=== PATIENT | female | born 1945 | race African-American/Black ===

== ENCOUNTER 2017-07-12 15:47 | Emergency (ER) | payer OTHER ==
--- NOTE | 2017-07-12 15:50 | PDOC ---
Attending Attestation - HPI HPI: 07/12/17 16:56 The patient is a 71 year old female, with a significant past medical history of GERD, bipolar disorder, schizophrenia, MDD, and hypertension, who presents to the emergency department from [facility] s/p unwitnessed mechanical fall earlier today. Per complex case manager at [facility], patient fell out of her wheelchair today. Per staff, patient was sitting in a chair in the cafeteria when she began to have tremors, became diaphoretic, and then fell out of her chair. Unknown if patient sustained any head trauma or LOC. Staff state patient has had similar episodes of tremors and diaphoresis 3-4 times in the past month , and usually resolve on their own. Patient has no other complaints at this time. - Medical Decision Making 07/12/17 16:56 Documentation prepared by Mary Jane Terrazas, acting as medical scientific liaison for Danica Yang MD. <Mary Jane Terrazas - Last Filed: 07/12/17 16:56> - Resident Resident Name: Bri Lynn - ED Attending Attestation I have performed the following: I have examined & evaluated the patient, The case was reviewed & discussed with the resident, I agree w/resident's findings & plan, Exceptions are as noted - Physicial Exam PE: GENERAL: Awake, alert, and fully oriented, in no acute distress, moving all 4 extremities HEAD: No signs of trauma LUNGS: Breath sounds equal, clear to auscultation bilaterally. No wheezes, and no crackles HEART: Regular rate and rhythm, normal S1 and S2, no murmurs, rubs or gallops ABDOMEN: Soft, nontender, pelvis stable EXTREMITIES: Normal range of motion NEUROLOGICAL: Cranial nerves II through XII intact. 5/5 strength and sensation in all extremities, Normal speech, normal gait, normal cerebellar function SKIN: Warm, Dry, normal turgor, no rashes or lesions noted. - Medical Decision Making Ms Anguiano is a 71 yo F with a history of schizophrenia Pt sent to the ER due to shaking noted in the wheel chair ? fall from the wheel chair pt denies shaking Pt denies falls Pt denies pain or injury pending CT pending labs Pt signed out to overnight attending <Danica Yang - Last Filed: 07/15/17 18:43>
--- NOTE | 2017-07-12 15:51 | PDOC ---
History of Present Illness - General Stated Complaint: TREMBLING - History of Present Illness Initial Comments: 07/12/17 16:00 Patient is a 71 year old female with a reported PMH of GERD, Bipolar Schizophrenia, MDD, HTN who presents to our ED from [facility] after falling out of a chair earlier today. As per staff at patient's [facility], patient was sitting in a chair in the cafeteria when she was noted to have tremors and diaphoresis and subsequently fell out of her care. Staff is unable to provide details of fall including possible head trauma/LOC and patient denies any fall or medical complaints in general. Staff note that patient has a month h/o similar episodes of tremors and diaphoresis with +/- falls for 1 month that are usually self-resolving. Patient's medication list reviewed with [facility] staff, uncertain why patient on blood thinners. NKDA Surgical: L hip Social: denies nicotine, denies alcohol, denies recreational drugs History obtained from patient and Cynthia Public Bath Attendant @ [facility] ext 155 Past History - Past Medical History Allergies/Adverse Reactions: Allergies Allergy/AdvReac Type Severity Reaction Status Date / Time No Known Allergies Allergy Verified 03/05/16 10:27 Home Medications: Ambulatory Orders Albuterol Sulfate Inhaler - [Ventolin Hfa Inhaler -] 2 inh PO Q6H 07/12/17 Amlodipine Besylate [Norvasc -] 5 mg PO DAILY 07/12/17 Apixaban [Eliquis] 5 mg PO BID 07/12/17 Docusate Sodium [Colace] 300 mg PO HS 07/12/17 Donepezil HCl 10 mg PO HS 07/12/17 Olanzapine [Zyprexa] 20 mg PO HS 07/12/17 Ranitidine HCl [Zantac] 150 mg PO BID 07/12/17 Sennosides [Senokot] 2 tab PO HS 07/12/17 GI Disorders: Yes (Hiatal hernia) HTN: Yes Psychiatric Problems: Yes (Schizophrenia paranoid type) - Suicide/Smoking/Psychosocial Hx Smoking Status: No Smoking History: Never smoked Number of Cigarettes Smoked Daily: 0 Hx Alcohol Use: No Drug/Substance Use Hx: No Substance Use Type: None Review of Systems - Review of Systems Able to Perform ROS?: No *Physical Exam - Physical Exam Comments: 07/12/17 16:12 GENERAL: Awake, alert, and fully oriented, in no acute distress, moving all 4 extremities HEAD: No signs of trauma EYES: PERRLA, EOMI, sclera anicteric, conjunctiva clear ENT: Auricles normal inspection, hearing grossly normal, nares patent, oropharynx clear without exudates. Moist mucosa NECK: Nontender, no stepoffs, Normal ROM, supple, no lymphadenopathy, JVD, or masses LUNGS: Breath sounds equal, clear to auscultation bilaterally. No wheezes, and no crackles HEART: Regular rate and rhythm, normal S1 and S2, no murmurs, rubs or gallops ABDOMEN: Soft, nontender, normoactive bowel sounds. No guarding, no rebound. No masses EXTREMITIES: Normal range of motion, no edema. No clubbing or cyanosis. No cords, erythema, or tenderness NEUROLOGICAL: Cranial nerves II through XII intact. 5/5 strength and sensation in all extremities, Normal speech, normal gait, normal cerebellar function SKIN: Warm, Dry, normal turgor, no rashes or lesions noted. ED Treatment Course - LABORATORY CBC & Chemistry Diagram: 07/12/17 16:35 07/12/17 16:35 Medical Decision Making - Medical Decision Making 07/12/17 16:08 71 year old female presents following episode of diaphoresis, tremors and fall with repeated h/o diaphoresis/tremors. DDx includes hypoglycemia, seizures, TIA. Will CT head/C-spine, basic labs, CXR, EKG. 07/12/17 16:12 FS 131; ECG shows A flutter with LAD HR 79 - no KENDALL/STD - no ischemic ECG. 07/12/17 19:[address] shows no acute bleed/ischemia. C-spine shows no fracture. CBC, CMP unremarkable. Troponin (-) x1. Patient continues to deny active medical complaints. At this time, patient stable for discharge. [facility] contacted, no medical personnel available overnight. Doctor Merrick Enriquez listed on patient' s paperwork as facility physician however no answer at provided phone number ). Will discharge patient to [facility] - follow up phone call tomorrow ( 07/12) to case finishing machine adjuster. *DC/Admit/Observation/Transfer Diagnosis at time of Disposition: Fall - Discharge Dispostion Disposition: INTERMEDIATE FACILITY Condition at time of disposition: Good Admit: No - Referrals Referrals: Oksana Barraza MD [Primary Care Provider] - - Patient Instructions Printed Discharge Instructions: How to Prevent Falls Additional Instructions: You were evaluated today following a fall. A cat scan of your head showed no concerning findings. We recommend you follow up with your facility's primary care provider for a general medical evaluation. Return to the Emergency Department for any new/worsening/concerning symptoms. - Post Discharge Activity
[2017-07-12 16:00] VITALS: BMI 27.3
[2017-07-12 16:52] LABS: BASO % 0.5 % (0-2.0); EOS % 0.3 % (0-4.5); HEMATOCRIT 41.3 % (32.4-45.2); HEMOGLOBIN 13.8 GM/dL (10.7-15.3); LYMPH % 11.9 % (8-40); MCHC 33.3 g/dl (32.0-36.0); MEAN CELL VOLUME 84.1 fl (80-96); MONO % 5.5 % (3.8-10.2); NEUT % 81.8 % (42.8-82.8); PLATELET COUNT 329 K/MM3 (134-434); RBC 4.91 M/mm3 (3.60-5.2); RDW 15.1 % (11.6-15.6); WHITE BLOOD COUNT 6.3 K/mm3 (4.0-10.0)
[2017-07-12 17:24] LABS: ALBUMIN 3.7 g/dl (3.4-5.0); ANION GAP 8 (8-16); BILIRUBIN,TOTAL 0.2 mg/dL (0.2-1.0); BLOOD UREA NITROGEN 13 mg/dL (7-18); CALCIUM 9.7 mg/dL (8.5-10.1); CHLORIDE 107 mmol/L (98-107); CO2 27 mmol/L (21-32); GLUCOSE,RANDOM 104 mg/dL (74-106); POTASSIUM 4.1 mmol/L (3.5-5.1); SGOT/AST 17 U/L (15-37); SODIUM 142 mmol/L (136-145); TOT PROT 7.7 g/dl (6.4-8.2)
[2017-07-12 17:27] LABS: ALK PHOS 106 U/L (45-117); SGPT/ALT 19 U/L (12-78)
[2017-07-12 19:11] VITALS: PULSE 82
[2017-07-12 21:03] VITALS: BP 146/89; TEMP 98.2
--- NOTE | 2017-07-13 11:07 | EKG ---
Test Reason : Blood Pressure : / mmHG Vent. Rate : 079 BPM Atrial Rate : 300 BPM P-R Int : 000 ms QRS Dur : 094 ms QT Int : 388 ms P-R-T Axes : 047 -42 061 degrees QTc Int : 444 ms POOR DATA QUALITY, INTERPRETATION MAY BE ADVERSELY AFFECTED SINUS RHYTHM PREMATURE ATRIAL COMPLEXES LEFT AXIS DEVIATION MINIMAL VOLTAGE CRITERIA FOR LVH, MAY BE NORMAL VARIANT ABNORMAL ECG Confirmed by MAGO AGUIRRE, ALAINA ([id number]) on 07/13/2017 11:07:05 AM Referred By: Confirmed By:ALAINA MERCEDES MD
== END 2017-07-12 21:03 ==
LOC: JER 15:47
DX: Z04.3 Encounter for examination and observation following other accident (principal); W07.XXXA Fall from chair, initial encounter; Y93.89 Activity, other specified; Y92.129 Unspecified place in nursing home as the place of occurrence of the external cause; F20.9 Schizophrenia, unspecified; I10 Essential (primary) hypertension; K21.9 Gastro-esophageal reflux disease without esophagitis
CPT/HCPCS: 36415; 70450-TC; 72125-TC; 80053; 82550; 82553; 82962; 83735; 84484; 85025; 93005; 93010; 99283-25

== ENCOUNTER 2019-02-27 09:35 | Inpatient (IN) | payer OTHER ==
[2019-02-27 10:52] LABS: BASO % 1.6 % (0-2.0); EOS % 0.1 % (0-4.5); HEMATOCRIT 39.1 % (32.4-45.2); HEMOGLOBIN 12.5 GM/dL (10.7-15.3); LYMPH % 30.8 % (8-40); MCH 28.2 pg (25.7-33.7); MEAN CELL VOLUME 88.1 fl (80-96); MEAN PLT VOLUME 7.6 fl (7.5-11.1); MONO % 8.9 % (3.8-10.2); NEUT % 58.6 % (42.8-82.8); PLATELET COUNT 319 K/MM3 (134-434); RBC 4.43 M/mm3 (3.60-5.2); RDW 14.1 % (11.6-15.6); WHITE BLOOD COUNT 3.5 K/mm3 (4.0-10.0)
[2019-02-27 11:03] LABS: INR 1.11 (0.83-1.09); PROTHROMBIN TIME (PATIENT) 13.1 SEC (9.7-13.0)
[2019-02-27 11:05] LABS: ACTIVATED PTT 38.6 SECONDS (25.2-36.5)
[2019-02-27 11:18] LABS: ALBUMIN 3.4 g/dl (3.4-5.0); BILIRUBIN,TOTAL 0.3 mg/dL (0.2-1); CALCIUM 9.2 mg/dL (8.5-10.1); CREATININE 0.7 mg/dL (0.55-1.3); POTASSIUM 4.8 mmol/L (3.5-5.1); TOT PROT 6.8 g/dl (6.4-8.2)
[2019-02-27 11:21] LABS: LIPASE 158 U/L (73-393)
[2019-02-27 11:22] LABS: URINE APPEARANCE CLEAR; URINE BILIRUBIN NEGATIVE (NEGATIVE); URINE COLOR YELLOW; URINE GLUCOSE (UA) NEGATIVE (NEGATIVE); URINE KETONE NEGATIVE (NEGATIVE); URINE LEUK ESTERASE NEGATIVE (NEGATIVE); URINE NITRITE NEGATIVE (NEGATIVE); URINE PROTEIN NEGATIVE (NEGATIVE); URINE UROBILINOGEN 0.2 mg/dL (0.2-1.0)
--- NOTE | 2019-02-27 11:22 | PDOC ---
Documentation entered by Annmarie Barajas SCRIBE, acting as scribe for Matthieu Harris MD. Matthieu Harris MD: This documentation has been prepared by the Kalr tomlinson Joy, SCRIBE, under my direction and personally reviewed by me in its entirety. I confirm that the documentation accurately reflects all work, treatment, procedures, and medical decision making performed by me. History of Present Illness - General Chief Complaint: Pain Stated Complaint: ABD PAIN Time Seen by Provider: 02/27/19 09:56 History Source: Patient Exam Limitations: No Limitations - History of Present Illness Initial Comments: 02/27/19 10:34 The patient is a 73 year old female with significant past medical history of blood clots (on Eliquis), GERD, anemia, bipolar disorder, schizophrenia, MDD, and HTN, HLD, who presents to the ED from [facility] with non-radiating periumbilical abdominal pain for 2 days. As per patient, she started experiencing abdominal pain 2 days ago every time after she eats. Patient endorses experiencing progressively worsening abdominal pain since last night that has been constant and states that she almost vomited which prompted her arrival to the ED via EMS. She notes that she has never experienced this kind of pain before. As per patient she has not taken any pain medication to help alleviate the pain. Patient reports that her last BM was this morning and was normal. SHe has no hx abdominal surgery. Last BM yesterday was normal, non bloody. Denies fevers, chills, headaches, dizziness, focal weakness/numbness, CP, SOB, urinary sxs, rash, LE edema Allergies: NKA PCP: Dr. Sukhdev He Past History - Past Medical History Allergies/Adverse Reactions: Allergies Allergy/AdvReac Type Severity Reaction Status Date / Time No Known Allergies Allergy Verified 02/27/19 09:53 Home Medications: Ambulatory Orders Amlodipine Besylate [Norvasc -] 5 mg PO DAILY 07/12/17 Docusate Sodium [Colace] 300 mg PO HS 07/12/17 Donepezil HCl 10 mg PO HS 07/12/17 Olanzapine [Zyprexa] 20 mg PO HS 07/12/17 Ranitidine HCl [Zantac] 150 mg PO BID 07/12/17 Sennosides [Senokot] 2 tab PO HS 07/12/17 Apixaban [Eliquis] 5 mg PO BID 02/27/19 Ferrous Sulfate 325 mg PO BID 02/27/19 Lurasidone HCl [Latuda] 80 mg PO BID 02/27/19 Omeprazole 20 mg PO DAILY 02/27/19 Simvastatin 20 mg PO DAILY 02/27/19 COPD: No GI Disorders: Yes (Hiatal hernia, GERD) HTN: Yes Psychiatric Problems: Yes (Schizophrenia paranoid type,DEPRESSION) - Psycho Social/Smoking Cessation Hx Smoking Status: No Smoking History: Current every day smoker Have you smoked in the past 12 months: Yes Number of Cigarettes Smoked Daily: 10 Information on smoking cessation initiated: Yes Hx Alcohol Use: No Drug/Substance Use Hx: No Substance Use Type: None Review of Systems - Review of Systems Able to Perform ROS?: Yes Comments:: 02/27/19 10:41 GENERAL/CONSTITUTIONAL: No fever or chills. No weakness. HEAD, EYES, EARS, NOSE AND THROAT: No change in vision. No ear pain or discharge. No sore throat. GASTROINTESTINAL: +Abdominal pain. +nausea, no vomiting, diarrhea or constipation. GENITOURINARY: No dysuria, frequency, or change in urination. CARDIOVASCULAR: No chest pain or shortness of breath. RESPIRATORY: No cough, wheezing, or hemoptysis. MUSCULOSKELETAL: No joint or muscle swelling or pain. No neck or back pain. SKIN: No rash NEUROLOGIC: No headache, vertigo, loss of consciousness, or change in strength/ sensation. ENDOCRINE: No increased thirst. No abnormal weight change. HEMATOLOGIC/LYMPHATIC: No easy bleeding. ALLERGIC/IMMUNOLOGIC: No hives or skin allergy. *Physical Exam - Vital Signs Last Vital Signs Temp Pulse Resp BP Pulse Ox 98.3 F 61 20 136/58 L 100 02/27/19 09:49 02/27/19 09:49 02/27/19 09:49 02/27/19 09:49 02/27/19 09:49 - Physical Exam Comments: 02/27/19 10:47 GENERAL: Awake, alert, and fully oriented, in no acute distress. Well groomed HEAD: No signs of trauma EYES: PERRLA, EOMI, sclera anicteric, conjunctiva clear ENT: Auricles normal inspection, hearing grossly normal, nares patent, oropharynx clear without exudates. Moist mucosa NECK: Normal ROM, supple, no lymphadenopathy, JVD, or masses LUNGS: Breath sounds equal, clear to auscultation bilaterally. No wheezes, and no crackles HEART: +3/6 Systolic ejection murmur loudest at R sternal border. Regular rate and rhythm, normal S1 and S2, rubs or gallops ABDOMEN: +Mild periumbilical tenderness to deep palpation, +mild epigastric tenderness, normoactive bowel sounds. No guarding, no rebound. No masses. EXTREMITIES: Normal range of motion, no edema. No clubbing or cyanosis. No cords , erythema, or tenderness. WWP NEUROLOGICAL: Normal speech, cranial nerves intact, equal strength and sensation b/l SKIN: Warm, Dry, normal turgor, no rashes or lesions noted. Heart Score/ECG Review #1 02/27/19 10:11 Twelve-lead EKG was performed and reviewed by me. Sinus bradycardia, rate 54. Normal axis. No ST elevations. ED Treatment Course - LABORATORY CBC & Chemistry Diagram: 02/27/19 10:31 02/27/19 10:31 Medical Decision Making - Medical Decision Making 02/27/19 10:08 73-year-old female presents the emergency department with 2 days of initially intermittent periumbilical abdominal pain, now constant since last night. Vitals within normal limits. Exam with mild periumbilical tenderness to palpation. Differential includes pancreatitis versus cholecystitis versus appendicitis versus colitis versus enteritis. Plan for labs, urinalysis, and ultrasound +/- CT abdomen pelvis. Patient declines pain medications at this time. Paged Dr. Nguyễn at 1430 and 1500 awaiting call back. 02/27/19 15:[address] Nguyễn again awaiting call back 02/27/19 16:22 Ultrasound with large stone in the gallbladder and borderline thickened wall. Patient continues to have epigastric tenderness to palpation. She continues to be nauseous. Concern for clinical cholecystitis despite normal LFTs. As such surgery was consulted. Multiple calls placed to Dr. Nguyễn, staff state she is in the operating room. Called Dr. Moreira for consult, case discussed and he will see the patient. Of note, patient's heart rate noted to be in the 40s, however BP 140s-150s systolic. She is not on any beta-blockers, unclear if this is new or old, however patient is stable and asymptomatic. Plan at this point to admit patient for clinical cholecystitis. Case discussed with Dr. Tovar. Patient has been accepted for admission. Case discussed in detail with admitting physician including history, physical exam and ancillary studies. Admitting physician has assumed care for the patient, will follow all pending diagnostics and will complete the evaluation and treatment. Discharge - Discharge Information Problems reviewed: Yes Clinical Impression/Diagnosis: Abdominal pain, Cholecystitis, Nausea Condition: Stable - Follow up/Referral Referrals: Sukhdev He [Primary Care Provider] - - Patient Discharge Instructions - Post Discharge Activity
[2019-02-27] MEDS ORDERED: SODIUM CHLORIDE 0.9% 1000 ML INFUS.BAG IV ONE (11:42)
--- NOTE | 2019-02-27 12:47 | EKG ---
Test Reason : Blood Pressure : / mmHG Vent. Rate : 054 BPM Atrial Rate : 054 BPM P-R Int : 190 ms QRS Dur : 116 ms QT Int : 434 ms P-R-T Axes : 055 -27 065 degrees QTc Int : 411 ms SINUS BRADYCARDIA OTHERWISE NORMAL ECG WHEN COMPARED WITH ECG OF 12-JUL-2017 16:42, PREMATURE ATRIAL COMPLEXES ARE NO LONGER PRESENT QRS DURATION HAS INCREASED Confirmed by MARGARITO AGUIRRE, ZENY ([id number]) on 02/27/2019 12:46:45 PM Referred By: Confirmed By:ZENY PIMENTEL MD
[2019-02-27] MEDS ORDERED: ACETAMINOPHEN 1000 MG/100 ML VIAL (NON FORMULARY) IVPB ONE (13:20)
[2019-02-27] MEDS ORDERED: SODIUM CHLORIDE 1,000 ML IV SCH (13:30)
[2019-02-27] MEDS ORDERED: ACETAMINOPHEN INJECTION 100 ML IVPB ONE (13:58)
--- NOTE | 2019-02-27 17:14 | HP ---
Admitting History and Physical - Primary Care Physician PCP: Stanton Tovar - Admission History of Present Illness: 73 year old female with significant past medical history of blood clots (on Eliquis), GERD, anemia, bipolar disorder, schizophrenia, MDD, and HTN, HLD, who presents to the ED from [facility] with non-radiating periumbilical abdominal pain for 2 days. As per patient, she started experiencing abdominal pain 2 days ago every time after she eats. Patient endorses experiencing progressively worsening abdominal pain since last night that has been constant and states that she almost vomited which prompted her arrival to the ED via EMS. She notes that she has never experienced this kind of pain before. As per patient she has not taken any pain medication to help alleviate the pain. Patient reports that her last BM was this morning and was normal. SHe has no hx abdominal surgery. Last BM yesterday was normal, non bloody. Denies fevers, chills, headaches, dizziness, focal weakness/numbness, CP, SOB, urinary sxs, rash, LE edema - Past Medical History Cardiovascular: Yes: HTN, Hyperlipdemia Gastrointestinal: Yes: GERD Heme/Onc: Yes: Anemia - Smoking History Smoking history: Current every day smoker Have you smoked in the past 12 months: Yes Aproximately how many cigarettes per day: 10 - Alcohol/Substance Use Hx Alcohol Use: No Home Medications - Allergies Allergies/Adverse Reactions: Allergies Allergy/AdvReac Type Severity Reaction Status Date / Time No Known Allergies Allergy Verified 02/27/19 09:53 - Home Medications Home Medications: Ambulatory Orders Amlodipine Besylate [Norvasc -] 5 mg PO DAILY 07/12/17 Docusate Sodium [Colace] 300 mg PO HS 07/12/17 Donepezil HCl 10 mg PO HS 07/12/17 Olanzapine [Zyprexa] 30 mg PO HS 07/12/17 Ranitidine HCl [Zantac] 150 mg PO BID 07/12/17 Sennosides [Senokot] 2 tab PO HS 07/12/17 Apixaban [Eliquis] 5 mg PO BID 02/27/19 Ferrous Sulfate 325 mg PO BID 02/27/19 Lurasidone HCl [Latuda] 80 mg PO BID 02/27/19 Omeprazole 20 mg PO DAILY 02/27/19 Simvastatin 20 mg PO DAILY 02/27/19 Physical Examination Vital Signs: Vital Signs Temperature 98.1 F 02/27/19 14:20 Pulse Rate 45 L 02/27/19 15:55 Respiratory Rate 20 02/27/19 15:55 Blood Pressure 142/60 02/27/19 15:55 O2 Sat by Pulse Oximetry (%) 100 02/27/19 15:55 Constitutional: Yes: No Distress HENT: Yes: Atraumatic Neck: Yes: Supple Cardiovascular: Yes: Regular Rate and Rhythm Respiratory: Yes: CTA Bilaterally Gastrointestinal: Yes: Normal Bowel Sounds Extremities: Yes: WNL Edema: No Peripheral Pulses WNL: Yes Neurological: Yes: Alert Labs: CBC, BMP 02/27/19 10:31 02/27/19 10:31 Problem List - Problems (1) HTN (hypertension) Assessment/Plan: on meds stable Code(s): I10 - ESSENTIAL (PRIMARY) HYPERTENSION Qualifiers: Hypertension type: essential hypertension Qualified Code(s): I10 - Essential (primary) hypertension (2) HLD (hyperlipidemia) Assessment/Plan: on meds Code(s): E78.5 - HYPERLIPIDEMIA, UNSPECIFIED Qualifiers: Hyperlipidemia type: pure hypercholesterolemia Qualified Code(s): E78.00 - Pure hypercholesterolemia, unspecified; E78.0 - Pure hypercholesterolemia (3) GERD (gastroesophageal reflux disease) Code(s): K21.9 - GASTRO-ESOPHAGEAL REFLUX DISEASE WITHOUT ESOPHAGITIS (4) Abdominal pain Code(s): R10.9 - UNSPECIFIED ABDOMINAL PAIN (5) Cholecystitis Assessment/Plan: for GB surgery Code(s): K81.9 - CHOLECYSTITIS, UNSPECIFIED Assessment/Plan Laboratory Tests 02/27/19 02/27/19 02/27/19 10:31 10:31 10:31 WBC 3.5 L RBC 4.43 Hgb 12.5 Hct 39.1 MCV 88.1 MCH 28.2 MCHC 32.0 RDW 14.1 Plt Count 319 MPV 7.6 Absolute Neuts (auto) 2.1 Neutrophils % 58.6 D Lymphocytes % 30.8 D Monocytes % 8.9 Eosinophils % 0.1 Basophils % 1.6 D Nucleated RBC % 0 PT with INR 13.10 H INR 1.11 H PTT (Actin FS) 38.6 H Sodium Potassium Chloride Carbon Dioxide Anion Gap BUN Creatinine Est GFR (CKD-EPI)AfAm Est GFR (CKD-EPI)NonAf POC Glucometer Random Glucose Lactic Acid 2.1 H Calcium Magnesium Total Bilirubin AST ALT Alkaline Phosphatase Troponin I Total Protein Albumin Lipase Urine Color Urine Appearance Urine pH Ur Specific [place] Urine Protein Urine Glucose (UA) Urine Ketones Urine Blood Urine Nitrite Urine Bilirubin Urine Urobilinogen Ur Leukocyte Esterase 02/27/19 02/27/19 02/27/19 10:31 10:31 11:13 WBC RBC Hgb Hct MCV MCH MCHC RDW Plt Count MPV Absolute Neuts (auto) Neutrophils % Lymphocytes % Monocytes % Eosinophils % Basophils % Nucleated RBC % PT with INR INR PTT (Actin FS) Sodium 142 Potassium 4.8 Chloride 109 H Carbon Dioxide 32 Anion Gap 1 L BUN 9.0 Creatinine 0.7 Est GFR (CKD-EPI)AfAm 99.62 Est GFR (CKD-EPI)NonAf 85.95 POC Glucometer Random Glucose 76 Lactic Acid Calcium 9.2 Magnesium 2.0 Total Bilirubin 0.3 AST 19 ALT 33 Alkaline Phosphatase 80 Troponin I < 0.02 Total Protein 6.8 Albumin 3.4 Lipase 158 Urine Color Yellow Urine Appearance Clear Urine pH 7.0 D Ur Specific [place] 1.010 Urine Protein Negative Urine Glucose (UA) Negative Urine Ketones Negative Urine Blood Negative Urine Nitrite Negative Urine Bilirubin Negative Urine Urobilinogen 0.2 Ur Leukocyte Esterase Negative 02/27/19 13:48 WBC RBC Hgb Hct MCV MCH MCHC RDW Plt Count MPV Absolute Neuts (auto) Neutrophils % Lymphocytes % Monocytes % Eosinophils % Basophils % Nucleated RBC % PT with INR INR PTT (Actin FS) Sodium Potassium Chloride Carbon Dioxide Anion Gap BUN Creatinine Est GFR (CKD-EPI)AfAm Est GFR (CKD-EPI)NonAf POC Glucometer 86 Random Glucose Lactic Acid Calcium Magnesium Total Bilirubin AST ALT Alkaline Phosphatase Troponin I Total Protein Albumin Lipase Urine Color Urine Appearance Urine pH Ur Specific [place] Urine Protein Urine Glucose (UA) Urine Ketones Urine Blood Urine Nitrite Urine Bilirubin Urine Urobilinogen Ur Leukocyte Esterase Active Medications Generic Name Dose Route Start Last Admin Trade Name Freq PRN Reason Stop Dose Admin Amlodipine Besylate 5 mg 03/01/19 10:00 Norvasc - PO DAILY GERALDINE Apixaban 5 mg 02/28/19 22:00 Eliquis - PO BID GERALDINE Atorvastatin Calcium 10 mg 03/01/19 22:00 Lipitor - PO HS GERALDINE Docusate Sodium 300 mg 02/28/19 22:00 Colace - PO HS GERALDINE Donepezil HCl 10 mg 02/28/19 22:00 Aricept - PO HS GERALDINE Famotidine 20 mg 02/28/19 22:00 Pepcid - PO BID GERALDINE Ferrous Sulfate 325 mg 02/28/19 17:30 Feosol - PO BIDWM GERALDINE Lactated Ringer's 1,000 mls @ 75 mls/hr 02/28/19 11:15 02/28/19 14:12 Lactated Ringers Solution IV 0 mls ASDIR GERALDINE Administration Lurasidone HCl 80 mg 02/28/19 22:00 Latuda - PO BID GERALDINE Morphine Sulfate 2 mg 02/28/19 13:00 Morphine Sulfate IVPUSH Q4H PRN breakthrough pain Olanzapine 20 mg 02/28/19 22:00 Zyprexa - PO HS [facility] Oxycodone HCl 5 mg 02/28/19 13:00 Roxicodone - PO Q4H PRN PAIN LEVEL 1-5 Oxycodone HCl 10 mg 02/28/19 13:00 Roxicodone - PO Q4H PRN PAIN LEVEL 6-10 Pantoprazole Sodium 20 mg 03/01/19 10:00 Protonix - PO DAILY [facility]
[2019-02-27] MEDS ORDERED: MORPHINE SULFATE 2 MG/ML VIAL IVPUSH PRN (17:18)
[2019-02-27] MEDS: SODIUM CHLORIDE 1,000 ML IV SCH (18:20)
[2019-02-28] VITALS: BMI 21.9
[2019-02-28] MEDS: SODIUM CHLORIDE 1,000 ML IV SCH (03:32)
[2019-02-28 08:07] LABS: BASO % 0.2 % (0-2.0); EOS % 0.5 % (0-4.5); HEMATOCRIT 35.3 % (32.4-45.2); HEMOGLOBIN 11.5 GM/dL (10.7-15.3); LYMPH % 30.4 % (8-40); MCH 28.6 pg (25.7-33.7); MCHC 32.6 g/dl (32.0-36.0); MEAN CELL VOLUME 87.6 fl (80-96); MEAN PLT VOLUME 7.6 fl (7.5-11.1); MONO % 7.4 % (3.8-10.2); NEUT % 61.5 % (42.8-82.8); PLATELET COUNT 288 K/MM3 (134-434); RBC 4.04 M/mm3 (3.60-5.2); RDW 14.3 % (11.6-15.6); WHITE BLOOD COUNT 3.7 K/mm3 (4.0-10.0)
--- NOTE | 2019-02-28 08:44 | CONSULT ---
- Consultation REQUESTING PROVIDER: CONSULT REQUEST: We have been asked to surgically evaluate this patient for acute cholecystitis. PCP:Stanton Tovar HISTORY OF PRESENT ILLNESS: (obtained from EMR) 73 year old female with significant past medical history of blood clots (on Eliquis), GERD, anemia, bipolar disorder, schizophrenia, MDD, and HTN, HLD, who presented to the ED from [facility] with non-radiating periumbilical abdominal pain for 2 days. As per patient, she started experiencing abdominal pain 2 days ago every time after she eats. Patient endorses experiencing progressively worsening abdominal pain since last night that has been constant and states that she almost vomited which prompted her arrival to the ED via EMS. She notes that she has never experienced this kind of pain before. As per patient she has not taken any pain medication to help alleviate the pain. Patient reports that her last BM was yesterday morning and was [id number]. She has no hx abdominal surgery. Denies fevers, chills, headaches, dizziness, focal weakness/numbness, CP, SOB, urinary sxs, rash, LE edema - Past Medical History as stated in HPI - Smoking History Smoking history: Current every day smoker Have you smoked in the past 12 months: Yes Aproximately how many cigarettes per day: 10 - Alcohol/Substance Use Hx Alcohol Use: No Home Medications - Allergies Allergies/Adverse Reactions: Allergies Allergy/AdvReac Type Severity Reaction Status Date / Time No Known Allergies Allergy Verified 02/27/19 09:53 - Home Medications Home Medications: Ambulatory Orders Amlodipine Besylate [Norvasc -] 5 mg PO DAILY 07/12/17 Docusate Sodium [Colace] 300 mg PO HS 07/12/17 Donepezil HCl 10 mg PO HS 07/12/17 Olanzapine [Zyprexa] 20 mg PO HS 07/12/17 Ranitidine HCl [Zantac] 150 mg PO BID 07/12/17 Sennosides [Senokot] 2 tab PO HS 07/12/17 Apixaban [Eliquis] 5 mg PO BID 02/27/19 Ferrous Sulfate 325 mg PO BID 02/27/19 Lurasidone HCl [Latuda] 80 mg PO BID 02/27/19 Omeprazole 20 mg PO DAILY 02/27/19 Simvastatin 20 mg PO DAILY 02/27/19 Physical Examination Vital Signs Temp 98.1 F 02/28/19 05:00 Pulse 43 L 02/28/19 05:00 Resp 18 02/28/19 05:00 BP 107/68 02/28/19 05:00 Pulse Ox 99 02/27/19 23:43 Intake & Output 02/27/19 02/27/19 02/28/19 11:59 23:59 11:59 Intake Total 315 525 Balance 315 525 Weight 124 lb 132 lb Intake: IV 75 525 Normal Saline - 1,000 ml 75 525 @ 75 mls/hr IV ASDIR GERALDINE Rx#:[id number] Oral 240 0 Other: # Unmeasured Voids Void 1 2 Bowel Movement No No Height 5 ft 5 in 5 ft 5 in Body Mass Index (BMI) 20.6 21.9 Weight Measurement Method Standing Scale Weight Measurement Method Est/Stated by Patient Constitutional: A&Ox3, NAD HENT: NC/AT Respiratory: Unlabored resp on RA, Gastrointestinal: ABD: soft. ND with mild TTP at the RUQ Extremities: Moving all extremities without limitation Edema: No Peripheral Pulses WNL: Yes Neurological: Yes: Alert Labs: CBC, BMP 02/28/19 07:40 Hepatic Panel Total Bilirubin 0.3 mg/dL (0.2-1) 02/27/19 10:31 AST 19 U/L (15-37) 02/27/19 10:31 ALT 33 U/L (13-61) 02/27/19 10:31 Alkaline Phosphatase 80 U/L (45-117) 02/27/19 10:31 Albumin 3.4 g/dl (3.4-5.0) 02/27/19 10:31 Ultrasound: gallstones without evidence of acute cholecystitis. Problem List - Problems (1) Cholelithiasis Assessment/Plan: Patient with symptomatic cholelithiasis. I discussed the evaluation and surgical plan with the patient and she expressed understanding. -NPO for OR with Dr Moreira today -B/L scds -OOb as tolerated -pain control Evaluation and plan discussed with Dr Moreira. Code(s): K80.20 - CALCULUS OF GALLBLADDER W/O CHOLECYSTITIS W/O OBSTRUCTION
[2019-02-28] MEDS ORDERED: BUPIVACAINE HCL/PF 0.5% (5 MG/ML) 30 ML VIAL IJ ONE ×3 (08:46→12:32)
[2019-02-28] MEDS ORDERED: BENZOIN TINCTURE SWABSTICK TP ONE (08:46)
[2019-02-28 08:47] LABS: ALBUMIN 2.9 g/dl (3.4-5.0); BILIRUBIN,TOTAL 0.3 mg/dL (0.2-1); BLOOD UREA NITROGEN 8.2 mg/dL (7-18); CREATININE 0.7 mg/dL (0.55-1.3); POTASSIUM 4.4 mmol/L (3.5-5.1); TOT PROT 5.8 g/dl (6.4-8.2)
--- NOTE | 2019-02-28 09:49 | CON.CARD ---
Consult Consult Specialty:: Cardiology Referred by:: Stanton Tovar Reason for Consultation:: Post-op CV evaluation - History of Present Illness Chief Complaint: Abd pain History of Present Illness: 73 year old female with significant past medical history of blood clots (on Eliquis), GERD, anemia, bipolar disorder, schizophrenia, MDD, and HTN, HLD, who presents to the ED from [facility] with non-radiating periumbilical abdominal pain for 2 days. As per patient, she started experiencing abdominal pain 2 days ago every time after she eats. Patient endorses experiencing progressively worsening abdominal pain since last night that has been constant and states that she almost vomited which prompted her arrival to the ED via EMS. Found to have cholelithiasis for which she underwent lap cholecystectomy w/ o sequelae. Denies fevers, chills, headaches, dizziness, focal weakness/numbness, CP, SOB, urinary sxs, rash, LE edema - Past Medical History Cardio/Vascular: Yes: HTN, Hyperlipdemia Gastrointestinal: Yes: GERD - Alcohol/Substance Use Hx Alcohol Use: No - Smoking History Smoking history: Current every day smoker Have you smoked in the past 12 months: Yes Aproximately how many cigarettes per day: 10 Home Medications - Allergies Allergies/Adverse Reactions: Allergies Allergy/AdvReac Type Severity Reaction Status Date / Time No Known Allergies Allergy Verified 02/27/19 09:53 - Home Medications Home Medications: Ambulatory Orders Amlodipine Besylate [Norvasc -] 5 mg PO DAILY 07/12/17 Docusate Sodium [Colace] 300 mg PO HS 07/12/17 Donepezil HCl 10 mg PO HS 07/12/17 Olanzapine [Zyprexa] 20 mg PO HS 07/12/17 Ranitidine HCl [Zantac] 150 mg PO BID 07/12/17 Sennosides [Senokot] 2 tab PO HS 07/12/17 Apixaban [Eliquis] 5 mg PO BID 02/27/19 Ferrous Sulfate 325 mg PO BID 02/27/19 Lurasidone HCl [Latuda] 80 mg PO BID 02/27/19 Omeprazole 20 mg PO DAILY 02/27/19 Simvastatin 20 mg PO DAILY 02/27/19 Vital Signs: Vital Signs Temperature 98.1 F 02/28/19 05:00 Pulse Rate 43 L 02/28/19 05:00 Respiratory Rate 18 02/28/19 05:00 Blood Pressure 107/68 02/28/19 05:00 O2 Sat by Pulse Oximetry (%) 99 02/27/19 23:43 - Other Data Labs, Other Data: CBC, BMP 02/28/19 07:40 02/28/19 07:40 INR, PTT INR 1.11 (0.83-1.09) H 02/27/19 10:31 Troponin, BNP 02/27/19 10:31 Troponin I < 0.02 Troponin, BNP 02/27/19 10:31 Troponin I < 0.02 Problem List - Problems (1) Chronic anticoagulation Code(s): Z79.01 - CORRECTION (CURRENT) USE OF ANTICOAGULANTS (2) Cholelithiasis Code(s): K80.20 - CALCULUS OF GALLBLADDER W/O CHOLECYSTITIS W/O OBSTRUCTION Qualifiers: Cholelithiasis location: gallbladder Cholecystitis acuity: other acuity Biliary obstruction: without biliary obstruction (3) HLD (hyperlipidemia) Code(s): E78.5 - HYPERLIPIDEMIA, UNSPECIFIED Qualifiers: Hyperlipidemia type: pure hypercholesterolemia Qualified Code(s): E78.00 - Pure hypercholesterolemia, unspecified; E78.0 - Pure hypercholesterolemia (4) HTN (hypertension) Code(s): I10 - ESSENTIAL (PRIMARY) HYPERTENSION Qualifiers: Hypertension type: essential hypertension Qualified Code(s): I10 - Essential (primary) hypertension Assessment/Plan Ultrasound: gallstones without evidence of acute cholecystitis. 1. Symptomatic cholelithiasis s/p lap cholecystectomy 2. Hyperyension 3. Hyperlipidemia 4. Thrombophilia on chronic Eliquis 5. Schizophrenia P:1. Resume Eliquis 5 bid once post-op hemostasis assured. Continue Norvasc 5 qd , Zocor 20 qhs 2. Advance diet as tolerated, analgesia as needed 3. Routine post-op care 4. Thank you for consultative opportunity
[2019-02-28] MEDS ORDERED: PANTOPRAZOLE SODIUM 40 MG VIAL IVPUSH SCH (10:00)
--- NOTE | 2019-02-28 10:52 | PN ---
Progress Note (short form) - Note Progress Note: Attending Surgeon Patient seen and evaluated; concur w/ a/p as outlined in Consult Note by ANDREW Lara; informed consent obtained from patient; r/b/t/a's d/w her and she wishes to proceed; I have left 2 voice mail messages for her daughter in [place] apprising her of the plan. Joe Moreira MD FACS
[2019-02-28] MEDS ORDERED: MIDAZOLAM HCL 2 MG/2 ML SINGLE DOSE VIAL ONE (11:01)
[2019-02-28] MEDS ORDERED: ONDANSETRON 4 MG/2 ML VIAL IVPUSH PRN (11:05)
[2019-02-28] MEDS ORDERED: LACTATED RINGERS SOLUTION 1,000 ML IV SCH (11:15)
[2019-02-28] MEDS ORDERED: ceFAZolin SODIUM 1 GM VIAL IVPB ONE ×2 (11:22)
[2019-02-28] MEDS ORDERED: ceFAZolin SODIUM 1 GM VIAL ONE (11:23)
[2019-02-28] MEDS ORDERED: ePHEDrine SULFATE 50 MG/1 ML AMPULE ONE (11:29)
[2019-02-28] MEDS ORDERED: GLYCOPYRROLATE 0.2 MG/1 ML VIAL ONE (12:31)
[2019-02-28] MEDS ORDERED: NEOSTIGMINE METHYLSULFATE 0.5 MG/1 ML - 10 ML MDV ONE (12:31)
--- NOTE | 2019-02-28 12:47 | ECHO ---
Name: BOOM QUEVEDO Exam:Adult Echocardiogram Study Date: 02/28/2019 07:32 AM Age: 73 yrs Reason For Study: cardiac clearance Height: 65 in Weight: 124 lb BSA: 1.6 m2 MMode/2D Measurements & Calculations IVSd: 0.87 cm Ao root diam: 3.1 cm LVIDd: 5.2 cm LA dimension: 4.9 cm LVIDs: 2.8 cm ACS: 2.0 cm LVPWd: 1.0 cm IVSs: 1.3 cm LVPWs: 1.3 cm EDV(Teich): 127.3 ml ESV(Teich): 29.6 ml Doppler Measurements & Calculations MV E max rhett: 108.3 cm/sec Ao V2 max: 167.8 cm/sec MV A max rhett: 73.5 cm/sec Ao max P.3 mmHg MV E/A: 1.5 Ao V2 mean: 115.1 cm/sec Ao mean P.1 mmHg Ao V2 VTI: 41.9 cm MR max rhett: 451.9 cm/sec TR max rhett: 229.2 cm/sec MR max P.4 mmHg TR max P.1 mmHg PI end-d rhett: 85.5 cm/sec Med Peak E' Rhett: 7.0 cm/sec Med E/e': 15.4 Lat Peak E' Rhett: 8.3 cm/sec Lat E/e': 13.1 Procedure A complete two-dimensional transthoracic echocardiogram was performed (2D, M-mode, Doppler and color flow Doppler). Left Ventricle The left ventricular size, thickness and function are normal. The left ventricular ejection fraction is normal. Ejection Fraction = 60-65%. The left ventricular wall motion is normal. Right Ventricle The right ventricle is normal in size and function. Atria The left atrium is mildly dilated. Right atrial size is normal. Mitral Valve There is mild to moderate mitral regurgitation. Tricuspid Valve There is mild tricuspid regurgitation. Right ventricular systolic pressure is normal. Aortic Valve No hemodynamically significant valvular aortic stenosis. No aortic regurgitation is present. Pulmonic Valve Trace pulmonic valvular regurgitation. Great Vessels The aortic root is normal size. Pericardium/Pleura There is no pericardial effusion. Interpretation Summary The left ventricular size, thickness and function are normal The right ventricle is normal in size and function. The left atrium is mildly dilated. There is mild to moderate mitral regurgitation. There is mild tricuspid regurgitation. Trace pulmonic valvular regurgitation. MD Peter Guerra 02/28/2019 12:46 PM
[2019-02-28] MEDS ORDERED: oxyCODONE HCL 5 MG TABLET PO PRN ×2 (13:00)
[2019-02-28] MEDS ORDERED: MORPHINE SULFATE 2 MG/ML VIAL IVPUSH PRN (13:00)
[2019-02-28] MEDS ORDERED: ACETAMINOPHEN 1000 MG/100 ML VIAL (NON FORMULARY) IVPB ONE (13:01)
[2019-02-28] MEDS ORDERED: ACETAMINOPHEN INJECTION 100 ML IVPB ONE (13:05)
--- NOTE | 2019-02-28 14:06 | OP ---
Operative Note - Note: Operative Date: 02/28/19 Pre-Operative Diagnosis: cholelithiasis Operation: Laparoscopic cholecystecomy Post-Operative Diagnosis: Same as Pre-op Surgeon: Joe Moreira Life Coach: Katie Lara Anesthesiologist/ROAD FREIGHT BRAKE COUPLER: Son Turner Anesthesia: General, Local Specimens Removed: gallbladder Estimated Blood Loss (mls): 20 Fluid Volume Replaced (mls): 600 Operative Report Dictated: Yes
--- NOTE | 2019-02-28 14:07 | SURG ---
Surgery Community Living Coach Note Community Living Coach: Katie Lara PA-C Date of Service: 02/28/19 Diagnosis: cholelithiasis Procedure: Laparoscopic cholecystecomy I was present for the entirety of the operative procedure. For further detail, please refer to operative report. Visit type - Case Type Case Type: ED Admission - Emergency Emergency Visit: Yes ED Registration Date: 02/27/19 Care time: The patient presented to the Emergency Department on the above date and was hospitalized for further evaluation of their emergent condition. - New patient This patient is new to me today: Yes Date on this admission: 02/28/19
--- NOTE | 2019-02-28 16:20 | PN ---
Progress Note, Physician History of Present Illness: feeling better - Current Medication List Current Medications: Active Medications Amlodipine Besylate (Norvasc -) 5 mg PO DAILY GERALDINE Apixaban (Eliquis -) 5 mg PO BID GERALDINE Atorvastatin Calcium (Lipitor -) 10 mg PO HS GERALDINE Docusate Sodium (Colace -) 300 mg PO HS GERALDINE Donepezil HCl (Aricept -) 10 mg PO HS GERALDINE Famotidine (Pepcid -) 20 mg PO BID GERALDINE Ferrous Sulfate (Feosol -) 325 mg PO BIDWM GERALDINE Lactated Ringer's (Lactated Ringers Solution) 1,000 mls @ 75 mls/hr IV ASDIR GERALDINE Last Admin: 02/28/19 14:12 Dose: 0 mls Lurasidone HCl (Latuda -) 80 mg PO BID GERALDINE Morphine Sulfate (Morphine Sulfate) 2 mg IVPUSH Q4H PRN PRN Reason: breakthrough pain Olanzapine (Zyprexa -) 20 mg PO HS GERALDINE Oxycodone HCl (Roxicodone -) 5 mg PO Q4H PRN PRN Reason: PAIN LEVEL 1-5 Oxycodone HCl (Roxicodone -) 10 mg PO Q4H PRN PRN Reason: PAIN LEVEL 6-10 Pantoprazole Sodium (Protonix -) 20 mg PO DAILY [facility] - Objective Vital Signs: Vital Signs Temperature 98.7 F 02/28/19 14:15 Pulse Rate 58 L 02/28/19 14:15 Respiratory Rate 16 02/28/19 14:15 Blood Pressure 114/50 L 02/28/19 14:15 O2 Sat by Pulse Oximetry (%) 100 02/28/19 14:15 Constitutional: Yes: No Distress HENT: Yes: Atraumatic Neck: Yes: Supple Cardiovascular: Yes: Regular Rate and Rhythm Respiratory: Yes: CTA Bilaterally Gastrointestinal: Yes: Normal Bowel Sounds, Tenderness (at the surgery site) Extremities: Yes: WNL Edema: No Peripheral Pulses WNL: Yes Neurological: Yes: Alert, Oriented Labs: CBC, BMP 02/28/19 07:40 02/28/19 07:40 INR, PTT INR 1.11 (0.83-1.09) H 02/27/19 10:31 Problem List - Problems (1) HTN (hypertension) Assessment/Plan: on meds stable Code(s): I10 - ESSENTIAL (PRIMARY) HYPERTENSION Qualifiers: Hypertension type: essential hypertension Qualified Code(s): I10 - Essential (primary) hypertension (2) HLD (hyperlipidemia) Assessment/Plan: on meds Code(s): E78.5 - HYPERLIPIDEMIA, UNSPECIFIED Qualifiers: Hyperlipidemia type: pure hypercholesterolemia Qualified Code(s): E78.00 - Pure hypercholesterolemia, unspecified; E78.0 - Pure hypercholesterolemia (3) GERD (gastroesophageal reflux disease) Code(s): K21.9 - GASTRO-ESOPHAGEAL REFLUX DISEASE WITHOUT ESOPHAGITIS (4) Abdominal pain Code(s): R10.9 - UNSPECIFIED ABDOMINAL PAIN (5) Cholecystitis Assessment/Plan: s/p GB surgery prn pain meds regular diet as per surgeon dc in am Code(s): K81.9 - CHOLECYSTITIS, UNSPECIFIED
[2019-02-28] MEDS ORDERED: FERROUS SO4 325 MG TABLET (FP) PO SCH (17:30)
[2019-02-28] MEDS ORDERED: PT OWN MED DRAWER 7, Y5N ONE (21:35)
[2019-02-28] MEDS: LURASIDONE HCL 40 MG TABLET PO SCH (21:41)
[2019-02-28] MEDS: FAMOTIDINE 20 MG TABLET PO SCH (21:42)
[2019-02-28] MEDS: APIXABAN 5 MG TABLET PO SCH (21:42)
[2019-02-28] MEDS ORDERED: DONEPEZIL HCL 10 MG TABLET (FP) PO SCH (22:00)
[2019-02-28] MEDS ORDERED: SENNOSIDES 8.6MG TABLET (FP) PO SCH (22:00)
[2019-02-28] MEDS ORDERED: OLANZapine 10 MG TABLET PO SCH (22:00)
[2019-02-28] MEDS ORDERED: DOCUSATE SODIUM 100 MG CAPSULE (FP) PO SCH (22:00)
--- NOTE | 2019-03-01 08:01 | PN ---
Progress Note (short form) - Note Progress Note: 73yo F s/p lap jose POD 1, pt seen and examined at the bedside. Pt denies fever, chills, n/v. Pt tolerating PO, ambulating, and urinating well. Last Vital Signs Temp Pulse Resp BP Pulse Ox 99.8 F H 43 L 18 134/55 L 100 03/01/19 06:00 03/01/19 06:00 03/01/19 06:00 03/01/19 06:00 02/28/19 21:00 CBC, BMP 02/28/19 07:40 02/28/19 07:40 PE: Gen: a&O x3 Resp: breathing comfortably Abd: soft, nondistended, mild RUQ tenderness, incisions clean with no erythema or discharge. Ext: no edema Problem List - Problems (1) Cholecystitis Assessment/Plan: Plan -pt appears to be doing well, pt cleared for discharge from surgery standpoint. -pt should follow up with Dr. Moreira next week in the office for postop check. Code(s): K81.9 - CHOLECYSTITIS, UNSPECIFIED
--- NOTE | 2019-03-01 08:43 | PN ---
Progress Note (short form) - Note Progress Note: Anesthesia postop note 73 y/o F s/p GA for laparoscopic cholecystectomy POD#1, vss, aaox3, no complaints. No anesthesia complications.
[2019-03-01 09:55] VITALS: BP 102/49; PULSE 50; TEMP 98.2
[2019-03-01] MEDS ORDERED: amLODIPine BESYLATE 5 MG TABLET (FP) PO SCH (10:00)
[2019-03-01] MEDS ORDERED: PANTOPRAZOLE 20 MG TABLET (FP) PO SCH (10:00)
[2019-03-01] MEDS ORDERED: PT OWN MED DRAWER 7, Y5N ONE ×2 (10:13→13:42)
[2019-03-01] MEDS: APIXABAN 5 MG TABLET PO SCH (10:28)
[2019-03-01] MEDS: FAMOTIDINE 20 MG TABLET PO SCH (10:29)
[2019-03-01] MEDS: LURASIDONE HCL 40 MG TABLET PO SCH (10:29)
--- NOTE | 2019-03-01 10:57 | DS ---
Physical Examination Vital Signs: Vital Signs Temperature 98.2 F 03/01/19 09:00 Pulse Rate 50 L 03/01/19 09:00 Respiratory Rate 18 03/01/19 09:00 Blood Pressure 102/49 L 03/01/19 09:00 O2 Sat by Pulse Oximetry (%) 100 03/01/19 09:00 Constitutional: Yes: No Distress HENT: Yes: Atraumatic Neck: Yes: Supple Cardiovascular: Yes: Regular Rate and Rhythm Respiratory: Yes: CTA Bilaterally Gastrointestinal: Yes: Normal Bowel Sounds, Tenderness (mild at the surgery site ) Extremities: Yes: WNL Neurological: Yes: Alert, Oriented Labs: CBC, BMP 02/28/19 07:40 02/28/19 07:40 Discharge Summary Problems reviewed: Yes Reason For Visit: ABDOMINAL PAIN Current Active Problems Abdominal pain (Acute) Cholecystitis (Acute) Cholelithiasis (Acute) Chronic anticoagulation (Acute) GERD (gastroesophageal reflux disease) (Acute) HLD (hyperlipidemia) (Acute) HTN (hypertension) (Acute) Nausea (Acute) Condition: Stable - Instructions Diet, Activity, Other Instructions: Dr. Moreira Discharge Instructions Dear BOOM QUEVEDO, Post Operative Instructions Physical activity Resume your normal everyday activity as tolerated no heavy lifting or exercise until seen by your surgeon. You may walk unlimited amounts of and climb stairs. You may resume driving the car when you feel safe and comfortable behind the wheel and are no longer taking narcotics. Wound care If you have a bandage, leave it on, and keep dry for 48 hours. After that time discard the outer bandage. If there are tapes on the skin under the outer bandage, leave them in place. They will peel off in the next 7 to 10 days. Do Not peel them off. You may shower 2 days after surgery but do not submerge the incisions. If there are tapes present on the skin, they can get wet. Do not apply lotion or ointments to incisions. Diet There are no dietary restrictions. Eat healthy, high-fiber foods. Drink 6 to 8 glasses of liquid each day. This will assist in keeping your bowels are regular. Pain management You may take Tylenol or acetaminophen or Ibuprofen (for example, Motrin, Advil etc.) Any pain prescription medication ordered should be taken as prescribed for moderate to severe pain. Call Dr. Moreira for any of the following: Severe pain not relieved by medication Fever of 101 or higher Excessive bleeding or drainage on dressing Inability to urinate If you experience any chest pain or shortness or breath please seek emergency treatment immediately. Call the office at [phone] for a post operative appointment in 7 - 10 days. Referrals: Sukhdev He [Primary Care Provider] - Disposition: HOME - Home Medications Comprehensive Discharge Medication List: Ambulatory Orders Amlodipine Besylate [Norvasc -] 5 mg PO DAILY 07/12/17 Docusate Sodium [Colace] 300 mg PO HS 07/12/17 Donepezil HCl 10 mg PO HS 07/12/17 Olanzapine [Zyprexa] 30 mg PO HS 07/12/17 Ranitidine HCl [Zantac] 150 mg PO BID 07/12/17 Sennosides [Senokot] 2 tab PO HS 07/12/17 Apixaban [Eliquis] 5 mg PO BID 02/27/19 Ferrous Sulfate 325 mg PO BID 02/27/19 Lurasidone HCl [Latuda] 80 mg PO BID 02/27/19 Omeprazole 20 mg PO DAILY 02/27/19 Simvastatin 20 mg PO DAILY 02/27/19 tn home
--- NOTE | 2019-03-01 12:42 | OP ---
DATE OF OPERATION: 02/27/2019 PREOPERATIVE DIAGNOSIS: Chronic cholecystitis and cholelithiasis. POSTOPERATIVE DIAGNOSIS: Chronic cholecystitis and cholelithiasis. PROCEDURE: Laparoscopic cholecystectomy. SURGEON: Joe Moreira MD BALLOON TESTER: Katie Lara PA-C ANESTHESIA: General. OPERATIVE FINDINGS: There was a contracted gallbladder containing multiple large stones. The gallbladder was partially intrahepatic. The rest of the findings were unremarkable. DESCRIPTION OF PROCEDURE: The patient was placed on the operating room table in supine position. After the induction of general anesthesia, the patient's abdomen was prepped with ChloraPrep and draped in sterile fashion. Time-out was taken and then pneumoperitoneum established above the umbilicus using a Veress needle. Once 15 mm of intra-abdominal pressure was obtained, a 5-mm port was placed at the umbilicus. Additional lateral 5-mm ports and a subxiphoid 12-mm port were placed and laparoscopy carried out, and the previously noted findings were observed. The gallbladder was placed on cephalad and lateral traction, and dissection was begun at the neck of the gallbladder where the peritoneum was opened medially and laterally using blunt and sharp dissection and electrocautery. Dissection continued in the triangle of Calot where the cystic duct was identified coursing from the neck of the gallbladder distally to the common bile duct. It was dissected proximally and distally for length. Similarly, the artery was similarly identified and dissected as well as a posterior branch. A critical view of safety was taken, and then the cystic duct divided proximally and distally using Endo Radha after it was clipped twice proximally and distally with large hemoclips. The artery and its posterior branch were similarly clipped and divided. Hemostasis was checked for and noted to be good and then the gallbladder was removed from the liver bed in a retrograde fashion using electrocautery. Prior to removal from the edge of the liver, hemostasis was again verified and then the gallbladder removed from the edge of the liver, placed in an EndoCatch, and brought out through the subxiphoid port. Pneumoperitoneum was reestablished, hemostasis verified again, and then the 5-mm lateral and subxiphoid ports were removed under laparoscopic vision without evidence of bleeding from the port sites. The umbilical port was removed and the pneumoperitoneum evacuated. All port sites were infiltrated with 0.5% Marcaine and the skin edges closed with 4-0 Biosyn in a subcuticular and continuous fashion. Steri-Strips and Band-Aid dressings were placed and the procedure terminated at this point and the patient aroused from general anesthesia and transferred to the post anesthesia care unit in stable condition awake and alert. ESTIMATED BLOOD LOSS: 20 mL. REPLACEMENTS: Crystalloid. DRAINS: None. SPECIMENS: Gallbladder and contents to Pathology. I, Joe Moreira, was physically present in the operating room from the time the patient was placed on the operating room table until she was transferred to the post anesthesia care unit in [employer]. MD NUHA [id number] MTDD
--- NOTE | 2019-03-01 15:49 | PATH ---
Surgical Pathology Report Patient Name: BOOM QUEVEDO [facility]. Rec. #: [id number] /Age/Gender: 1945 (Age: 73) / F Account: [id number] Location: 4 W TELEMETRY U Taken: 02/28/2019 Received: 02/28/2019 Reported: 03/01/2019 Physicians: Joe Moreira MD Specimen(s) Received GALLBLADDER Clinical History Abdominal pain, cholecystitis Final Diagnosis GALLBLADDER, LAPAROSCOPIC CHOLECYSTECTOMY: ACUTE AND CHRONIC CHOLECYSTITIS WITH CHOLELITHIASIS. Electronically Signed Spring Kunz M.D. Gross Description Received in formalin, labeled "gallbladder," is a 4.0 x 1.8 x 1.7 cm. gallbladder with a 0.2 cm. in length portion of cystic duct attached. The outer surface is kurtz-pink and varies from smooth to shaggy. The lumen contains a 1.0 cm in greatest dimension yellow, spherical cholelith as well as clear, mucinous bile. The mucosa is kurtz and eroded. The wall of the gallbladder measures 0.1 cm. in thickness. Supervisor Tunnel Heading sections are submitted in one cassette. /02/28/2019 saudi02/28/2019
[2019-03-01] MEDS ORDERED: ATORVASTATIN CA 10 MG TABLET (FP) PO SCH (22:00)
== END 2019-03-01 14:26 | disposition home or self-care (01) | DRG 419 ==
LOC: JER 09:35 → JERBED 15:50 → J4W 22:07
PROVIDERS: ADMIT Internal Medicine; ATTEND Internal Medicine
PROC: 0FT44ZZ Resection of Gallbladder, Percutaneous Endoscopic Approach (ICD-10-PCS; principal; 2019-02-27)
DX: K80.10 Calculus of gallbladder with chronic cholecystitis without obstruction (principal); K21.9 Gastro-esophageal reflux disease without esophagitis; I10 Essential (primary) hypertension; E78.5 Hyperlipidemia, unspecified; D64.9 Anemia, unspecified; F20.9 Schizophrenia, unspecified; F31.9 Bipolar disorder, unspecified; F17.210 Nicotine dependence, cigarettes, uncomplicated; R10.9 Unspecified abdominal pain
CPT/HCPCS: 36415; 74177-TC; 76705-TC; 80053; 81003; 82962; 83605; 83690; 83735; 84484; 85025; 85610; 85730; 86850; 86900; 86901; 87086; 88304-TC; 93005; 93010; 93306-TC; 94760; 99285-25; J0131; J7030

== ENCOUNTER 2020-09-25 13:33 | Inpatient (IN) | payer OTHER ==
[2020-09-25] MEDS ORDERED: SODIUM CHLORIDE 1,000 ML IV STA (14:29)
[2020-09-25] MEDS ORDERED: ACETAMINOPHEN 1000 MG/100 ML VIAL (NON FORMULARY) IVPB ONE (14:29)
[2020-09-25] MEDS ORDERED: ACETAMINOPHEN INJECTION 100 ML IVPB ONE (15:28)
[2020-09-25 16:01] LABS: BASO % 0.2 % (0-2.0); EOS % 0.3 % (0-4.5); HEMATOCRIT 36.6 % (32.4-45.2); HEMOGLOBIN 11.8 GM/dL (10.7-15.3); LYMPH % 20.7 % (8-40); MCH 27.6 pg (25.7-33.7); MCHC 32.2 g/dl (32.0-36.0); MEAN CELL VOLUME 85.8 fl (80-96); MEAN PLT VOLUME 7.9 fl (7.5-11.1); MONO % 12.1 % (3.8-10.2); NEUT % 66.7 % (42.8-82.8); PLATELET COUNT 263 10^3/uL (134-434); RBC 4.27 M/mm3 (3.60-5.2); RDW 13.5 % (11.6-15.6)
[2020-09-25 16:20] LABS: INR 1.22 (0.83-1.09); PROTHROMBIN TIME (PATIENT) 14.7 SEC (9.7-13.0)
[2020-09-25 16:22] LABS: ACTIVATED PTT 38.2 SECONDS (25.2-36.5)
[2020-09-25 16:25] LABS: CHLORIDE 109 mmol/L (98-107); SODIUM 142 mmol/L (136-145)
[2020-09-25 16:27] LABS: CALCIUM 9.2 mg/dL (8.5-10.1)
[2020-09-25 16:28] LABS: ALBUMIN 3.1 g/dl (3.4-5.0); ANION GAP 4 MMOL/L (8-16); BLOOD UREA NITROGEN 12.1 mg/dL (7-18); CO2 29 mmol/L (21-32); GLUCOSE,RANDOM 108 mg/dL (74-106); LIPASE 92 U/L (73-393)
[2020-09-25 16:31] LABS: CREATININE 0.8 mg/dL (0.55-1.3); SGOT/AST 23 U/L (15-37); SGPT/ALT 46 U/L (13-61)
[2020-09-25 16:32] LABS: BILIRUBIN,TOTAL 0.2 mg/dL (0.2-1)
[2020-09-25 16:33] LABS: TOT PROT 6.7 g/dl (6.4-8.2)
[2020-09-25 16:34] LABS: ALK PHOS 104 U/L (45-117)
[2020-09-25 17:30] LABS: EPI CELLS 36 /uL (0-25.1); HYALINE CASTS 5 /uL (0-3.1); URINE APPEARANCE CLOUDY; URINE BACTERIA 1704 /uL (0-1359); URINE BILIRUBIN NEGATIVE (NEGATIVE); URINE COLOR YELLOW; URINE GLUCOSE (UA) NEGATIVE (NEGATIVE); URINE KETONE TRACE (NEGATIVE); URINE LEUK ESTERASE TRACE (NEGATIVE); URINE NITRITE NEGATIVE (NEGATIVE); URINE PROTEIN TRACE (NEGATIVE); URINE RBC 7 /uL (0-23.9); URINE WBC 23 /uL (0-25.8)
[2020-09-25] MEDS ORDERED: CEFTRIAXONE 1 GM in DEXTROSE 5%-WATER - 100 ML IVPB ONE (17:32)
[2020-09-25] MEDS ORDERED: CEFTRIAXONE 1 GM/50 ML BAG ONE (17:53)
[2020-09-25] MEDS ORDERED: KETOROLAC TROMETHAMINE 15 MG/ML VIAL IVPUSH ONE (19:54)
[2020-09-25] MEDS ORDERED: KETOROLAC TROMETHAMINE 15 MG/ML VIAL ONE (20:12)
[2020-09-26 03:38] VITALS: BMI 22.8
[2020-09-26] MEDS ORDERED: metroNIDAZOLE 250 MG TABLET PO SCH (06:00)
[2020-09-26] MEDS ORDERED: ENOXAPARIN NA (PORCINE) 40 MG/0.4 ML DISP.SYRIN SQ SCH (10:00)
[2020-09-26 10:36] LABS: BASO % 0.2 % (0-2.0); EOS % 0.7 % (0-4.5); HEMATOCRIT 37.2 % (32.4-45.2); LYMPH % 28.8 % (8-40); MCH 27.6 pg (25.7-33.7); MCHC 32.4 g/dl (32.0-36.0); MEAN CELL VOLUME 85.3 fl (80-96); MEAN PLT VOLUME 7.7 fl (7.5-11.1); MONO % 9.9 % (3.8-10.2); NEUT % 60.4 % (42.8-82.8); PLATELET COUNT 267 10^3/uL (134-434); RBC 4.36 M/mm3 (3.60-5.2); RDW 13.7 % (11.6-15.6); WHITE BLOOD COUNT 4.9 K/mm3 (4.0-10.0)
[2020-09-26] MEDS ORDERED: SODIUM CHLORIDE 1,000 ML IV SCH (10:45)
[2020-09-26 10:46] LABS: INR 1.09 (0.83-1.09); PROTHROMBIN TIME (PATIENT) 13.4 SEC (9.7-13.0)
[2020-09-26 11:10] LABS: BLOOD UREA NITROGEN 11.1 mg/dL (7-18); CALCIUM 9.3 mg/dL (8.5-10.1)
[2020-09-26 11:11] LABS: ALBUMIN 3.2 g/dl (3.4-5.0); CREATININE 0.7 mg/dL (0.55-1.3); MAGNESIUM 2.3 mg/dL (1.8-2.4)
[2020-09-26 11:13] LABS: PHOSPHOROUS 3.8 mg/dL (2.5-4.9)
[2020-09-26 11:17] LABS: BILIRUBIN,TOTAL 0.4 mg/dL (0.2-1)
[2020-09-26] MEDS ORDERED: ACETAMINOPHEN 1000 MG/100 ML VIAL (NON FORMULARY) IVPB PRN (14:07)
[2020-09-26] MEDS: POLYETHYLENE GLYCOL 3350 119 GM BTL PO SCH ×2 (15:02→21:41)
[2020-09-26] MEDS: SODIUM CHLORIDE 1,000 ML IV SCH (16:00)
[2020-09-26] MEDS: FERROUS SO4 325 MG TABLET (FP) PO SCH (16:32)
[2020-09-26] MEDS ORDERED: DEXTROSE 5%-WATER 100 ML IVPB ONE (17:50)
[2020-09-26] MEDS: CEFTRIAXONE 2 GM in DEXTROSE 5%-WATER 2 GM/100 ML BAG IVPB SCH (18:01)
[2020-09-26] MEDS: PANTOPRAZOLE 40 MG TABLET PO SCH (21:40)
[2020-09-26] MEDS: LURASIDONE HCL 40 MG TABLET PO SCH (21:41)
[2020-09-26] MEDS ORDERED: ATORVASTATIN CA 10 MG TABLET (FP) PO SCH (22:00)
[2020-09-26] MEDS ORDERED: DONEPEZIL HCL 10 MG TABLET (FP) PO SCH (22:00)
[2020-09-26] MEDS ORDERED: OLANZapine 10 MG TABLET PO SCH (22:00)
[2020-09-27] MEDS: POLYETHYLENE GLYCOL 3350 119 GM BTL PO SCH (05:00)
[2020-09-27 05:06] VITALS: PULSE 47
[2020-09-27 09:47] LABS: HEMATOCRIT 39.5 % (32.4-45.2); HEMOGLOBIN 12.5 GM/dL (10.7-15.3); MCH 27.5 pg (25.7-33.7); MCHC 31.6 g/dl (32.0-36.0); MEAN CELL VOLUME 86.9 fl (80-96); MEAN PLT VOLUME 7.6 fl (7.5-11.1); PLATELET COUNT 283 10^3/uL (134-434); RBC 4.54 M/mm3 (3.60-5.2); RDW 13.5 % (11.6-15.6); WHITE BLOOD COUNT 3.5 K/mm3 (4.0-10.0)
[2020-09-27] MEDS ORDERED: PT OWN MED DRAWER 7, Y5N ONE (10:00)
[2020-09-27] MEDS ORDERED: amLODIPine BESYLATE 5 MG TABLET (FP) PO SCH (10:00)
[2020-09-27] MEDS ORDERED: DEXTROSE 5%-WATER 100 ML IVPB ONE (10:01)
[2020-09-27 10:06] LABS: CALCIUM 8.9 mg/dL (8.5-10.1); MAGNESIUM 2.2 mg/dL (1.8-2.4)
[2020-09-27 10:07] LABS: ALBUMIN 3.1 g/dl (3.4-5.0); BLOOD UREA NITROGEN 7.7 mg/dL (7-18)
[2020-09-27 10:09] LABS: CREATININE 0.8 mg/dL (0.55-1.3); PHOSPHOROUS 3.1 mg/dL (2.5-4.9)
[2020-09-27] MEDS: FERROUS SO4 325 MG TABLET (FP) PO SCH (10:09)
[2020-09-27] MEDS: CEFTRIAXONE 2 GM in DEXTROSE 5%-WATER 2 GM/100 ML BAG IVPB SCH (10:09)
[2020-09-27] MEDS: LURASIDONE HCL 40 MG TABLET PO SCH (10:09)
[2020-09-27] MEDS: PANTOPRAZOLE 40 MG TABLET PO SCH (10:09)
[2020-09-27] MEDS: SODIUM CHLORIDE 1,000 ML IV SCH (10:11)
[2020-09-27 10:12] LABS: BILIRUBIN,TOTAL 0.3 mg/dL (0.2-1)
[2020-09-27 10:19] LABS: LACTIC ACID 2.5 mmol/L (0.4-2.0)
[2020-09-27 10:25] VITALS: BP 135/58; TEMP 98.2
== END 2020-09-27 11:17 | disposition left against medical advice (07) | DRG 392 ==
LOC: JER 13:33 → JERBED 20:23 → J5S 09-26 03:09
PROVIDERS: ADMIT Internal Medicine; ATTEND Internal Medicine
DX: K44.0 Diaphragmatic hernia with obstruction, without gangrene (principal); N39.0 Urinary tract infection, site not specified; E87.2 Acidosis; E78.5 Hyperlipidemia, unspecified; K21.9 Gastro-esophageal reflux disease without esophagitis; I10 Essential (primary) hypertension; F20.9 Schizophrenia, unspecified; F31.9 Bipolar disorder, unspecified; D64.9 Anemia, unspecified; K57.30 Diverticulosis of large intestine without perforation or abscess without bleeding; K56.41 Fecal impaction; F17.210 Nicotine dependence, cigarettes, uncomplicated; K44.9 Diaphragmatic hernia without obstruction or gangrene
CPT/HCPCS: 36415; 74177-TC; 80053; 81003; 83605; 83690; 83735; 84100; 84436; 84484; 85025; 85027; 85610; 85730; 86850; 86900; 86901; 87040; 87086; 93005; 93010; 99285-25; C9803; Q9967; U0003; U0005